=== PATIENT | male | born 1960 | race Caucasian/White ===

== ENCOUNTER 2022-10-20 10:48 | Observation (INO) | payer OTHER ==
[2022-10-20] MEDS ORDERED: NITROGLYCERIN SL TABS 0.4 MG TAB SUBLINGUAL STA (11:01)
--- NOTE | 2022-10-20 11:08 | ED ---
Chest Pain HPI - General Chief Complaint: Chest Pain Stated Complaint: chest pain Time Seen by Provider: 10/20/22 10:54 Source: patient, RN notes reviewed Mode of arrival: ambulatory Limitations: no limitations - History of Present Illness Initial Comments: This is a 61-year-old male who presents to the emergency department for chest pain. Patient states that this has been going on for about a week. It was initially occurring on an intermittent basis, however it seems to be increasing in frequency and intensity. Describes this as a dull aching pain in the center of his chest with radiation into the back. The pain in the back feels sharp and he states it is between the shoulder blades. He has minor associated shortness of breath and has now started coughing. Denies any history of similar symptoms in the past. He has no personal cardiac history, but states that he does have a family history of cardiac problems. Unsure if anyone had a heart attack before the age of 50. Denies any medical problems and is not taking any medication on a regular basis. He is a daily smoker. Denies any fevers, chills, sore throat, palpitations, abdominal pain, nausea, vomiting, diarrhea, back pain, or headaches. MD Complaint: chest pain Onset/Timin -: week(s) - Related Data Home Medications Medication Instructions Recorded Confirmed No Known Home Medications 10/20/22 10/20/22 Allergies Allergy/AdvReac Type Severity Reaction Status Date / Time No Known Allergies Allergy Verified 10/20/22 15:49 Review of Systems ROS Statement: Those systems with pertinent positive or pertinent negative responses have been documented in the HPI. ROS Other: All systems not noted in ROS Statement are negative. Past Medical History Past Medical History: No Reported History History of Any Multi-Drug Resistant Organisms: None Reported Past Surgical History: No Surgical Hx Reported Past Psychological History: No Psychological Hx Reported Smoking Status: Current every day smoker Past Alcohol Use History: None Reported Past Drug Use History: None Reported General Exam Limitations: no limitations General appearance: alert, in distress Head exam: Present: atraumatic, normocephalic, normal inspection Respiratory exam: Present: normal lung sounds bilaterally. Absent: respiratory distress, wheezes, rales, rhonchi, stridor, chest wall tenderness Cardiovascular Exam: Present: regular rate, normal rhythm, normal heart sounds. Absent: systolic murmur, diastolic murmur, rubs, gallop, clicks Neurological exam: Present: alert, oriented X3, CN II-XII intact Psychiatric exam: Present: normal affect, normal mood Skin exam: Present: warm, dry, intact, normal color. Absent: rash Course Vital Signs 10/20/22 10/20/22 10/20/22 10:50 12:00 13:00 Temperature 97.8 F Pulse Rate 73 54 L 59 L Respiratory 20 15 16 Rate Blood Pressure 146/73 105/73 124/80 O2 Sat by Pulse 99 100 100 Oximetry 10/20/22 10/20/22 10/20/22 14:00 16:00 17:00 Temperature Pulse Rate 61 58 L 60 Respiratory 18 Rate Blood Pressure 136/81 O2 Sat by Pulse 100 Oximetry Chest Pain MDM - MDM This is a 61-year-old male who presents to the emergency department for chest pain. Was pt. sent in by a medical professional or institution? @ -No Did you speak to anyone other than the patient for history? @ -No Did you review nursing and triage notes? @ -Yes, and I agree, it is accurate with regards to the patient's symptoms. Were old charts reviewed? @ -No Differential Diagnosis? @ -Differential Chest Pain: Stable Angina, Unstable Angina, STEMI, NSTEMI Aortic Dissection, Pneumothorax, Musculoskeletal, Esophageal Spasm GERD, Cholecystitis, Pancreatitis, Zoster, this is not meant to be an all-inclusive list. EKG interpreted by me (3pts min.)? @ -EKG interpreted by me demonstrating the following: Normal sinus rhythm. Ventricular rate 67 beats per minute, MN interval 140 ms, QRS duration 90 ms, QTC 433 ms. X-rays interpreted by me (1pt min.)? @ -Chest x-ray obtained, my interpretation identifies no localized consolidations or infiltrates. CT interpreted by me (1pt min.)? @ -Not obtained U/S interpreted by me (1pt. min.)? @ -Not obtained What testing was considered but not performed? (CT, X-rays, U/S, labs)? Why? @ -None What meds were considered but not given? Why? @ -None Did you discuss the management of the patient with other professionals? @ -Yes, Dr. De Souza, who accepts the patient for admission. Did you reconcile home meds? @ -No Was smoking cessation discussed for >3mins.? @ -I discussed smoking cessation for greater than 3 minutes. The risk of smoking were discussed with the patient including but not limited to risks of cancer, stroke, coronary artery disease and COPD. Also discussed with patient were multiple methods of quitting smoking. Lastly we discussed the financial cost of smoking. Was critical care preformed (if so, how long)? @ -No Were there social determinants of health that impacted care today? How? (Homelessness, low income, unemployed, alcoholism, drug addiction, transportation, low edu. Level, literacy, decrease access to med. care, [facility], rehab)? @ -No Was there de-escalation of care discussed even if they declined? (Discuss DNR or withdrawal of care, Hospice)? @ -No What co-morbidities impacted this encounter? (DM, HTN, Smoking, COPD, CAD, Canc er, CVA, Hep., AIDS, mental health diagnosis, sleep apnea, morbid obesity)? @ -None Was patient admitted / discharged? @ -Admitted. Lab work obtained and found to be nonactionable. First troponin negative. Chest x-ray obtained revealing no acute findings. Patient was given a dose of nitroglycerin. This did not affect his chest pain whatsoever and only gave him a headache. Toradol was subsequently administered. Heart score is 3-4. Patient admitted to medicine for further evaluation of chest pain with cardiology consult. Undiagnosed new problem with uncertain prognosis? @ -None Drug Therapy requiring intensive monitoring for toxicity (Heparin, Nitro, Insulin, Cardizem)? @ -None Were any procedures done? @ -None Diagnosis/symptom? @ -Chest pain Acute, or Chronic, or Acute on Chronic? @ -Acute Uncomplicated (without systemic symptoms) or Complicated (systemic symptoms)? @ -Complicated Side effects of treatment? @ -None Exacerbation, Progression, or Severe Exacerbation] @ -Not applicable Poses a threat to life or bodily function? @ -Yes This case was discussed in detail with the attending ED physician, Dr. Suarez. Presentation, findings, and treatment plan discussed in detail as well. Disposition Clinical Impression: Chest pain Disposition: ADMITTED IP TO THIS HOSP
[2022-10-20 11:16] LABS: Basophils % (A) 0 %; Eosinophils # (A) 0.3 k/uL (0-0.7); Eosinophils % (A) 3 %; HCT 43.7 % (39.0-53.0); HGB 14.2 gm/dL (13.0-17.5); Lymphocytes % (A) 23 %; MCHC 32.4 g/dL (31.0-37.0); MCV 89.6 fL (80.0-100.0); Mean Platelet Volume 7.4; Monocytes # (A) 0.5 k/uL (0-1.0); Monocytes % (A) 5 %; Neutrophils % (A) 67 %; Platelet Count 334 k/uL (150-450); RBC 4.88 m/uL (4.30-5.90); RDW 13.9 % (11.5-15.5)
[2022-10-20 11:31] LABS: INR 0.9 (<1.2); Partial Thromboplastin Time 24.2 sec (22.0-30.0); Prothrombin Time 9.6 sec (9.0-12.0)
--- NOTE | 2022-10-20 11:39 | XR ---
EXAMINATION TYPE: XR chest 2V DATE OF EXAM: 10/20/2022 COMPARISON: NONE HISTORY: Shortness of breath TECHNIQUE: Frontal and lateral views of the chest are obtained. FINDINGS: Scattered senescent parenchymal changes noted. Hyperinflation compatible with COPD. No evidence for infiltrate. No evidence for atelectasis. Heart size is stable. Mediastinal structures are stable and grossly unremarkable. No evidence for hilar prominence. Degenerative changes dorsal spine. IMPRESSION: 1. No evidence for acute pulmonary disease.
[2022-10-20 11:40] LABS: ALT 16 U/L (4-49); AST 18 U/L (17-59); African American GFR (CKD) >90 (>60 ml/min/1.73 sqM); Albumin 3.7 g/dL (3.5-5.0); Alkaline Phosphatase 62 U/L (38-126); Anion Gap 4 mmol/L; Blood Urea Nitrogen 18 mg/dL (9-20); Calcium 8.5 mg/dL (8.4-10.2); Carbon Dioxide 25 mmol/L (22-30); Chloride 109 mmol/L (98-107); Glucose 96 mg/dL (74-99); Non-African American GFR(CKD) >90 (>60 ml/min/1.73 sqM); Potassium 4.5 mmol/L (3.5-5.1); Sodium 138 mmol/L (137-145); Total Bilirubin 0.2 mg/dL (0.2-1.3); Total Protein 6.2 g/dL (6.3-8.2)
[2022-10-20] MEDS ORDERED: KETOROLAC 15 MG/ML 1 ML VIAL IVP STA (11:52)
[2022-10-20] MEDS ORDERED: NITROGLYCERIN SL TABS 0.4 MG TAB SUBLINGUAL PRN (12:50)
[2022-10-20] MEDS ORDERED: MORPHINE SULFATE 2 MG/ML SYRINGE IVP PRN ×2 (12:50→18:07)
[2022-10-20] MEDS ORDERED: NALOXONE 0.4 MG/ML 1 ML VIAL IV PRN (12:51)
[2022-10-20] MEDS ORDERED: ACETAMINOPHEN TAB 325 MG TAB PO PRN (12:51)
[2022-10-20] MEDS ORDERED: ONDANSETRON 4 MG/2 ML VIAL IVP PRN (12:51)
--- NOTE | 2022-10-20 17:23 | HP ---
HISTORY AND PHYSICAL PRESENTING COMPLAINT: Chest pain. HISTORY OF PRESENT ILLNESS: This is a 61-year-old gentleman with no significant past medical history, presented to the emergency department with complaints of chest pain that has been going on for the last 48 hours. The patient complained of left-sided chest discomfort which was intermittent. The pain was dull and aching in intensity, radiating to the shoulder blades. The patient denies any significant cardiac history. The patient does have significant history of smoking and family history of coronary artery disease. At the time of presentation in the ER, the patient had a chest x-ray obtained, which was negative for acute pulmonary process. EKG obtained in the ER showed normal sinus rhythm. No ST segment changes. Initial troponin obtained at the time of presentation was negative. The patient had a D-dimer ordered, pending at this time. The patient was tested negative for influenza and COVID, RSV as well. The patient will be placed on observation unit with consultation from Cardiology for evaluation for acute coronary syndrome. PAST MEDICAL HISTORY: No significant past medical history. PAST SURGICAL HISTORY: History of hip, ankle surgery. SOCIAL HISTORY: He smokes quarter pack per day for the last 30 years. Denies alcohol use. Does admit to history of marijuana use. FAMILY HISTORY: Significant for coronary artery disease in father and mother. Sister with history of diabetes mellitus. ALLERGIES: No known drug allergies. REVIEW OF SYSTEMS: A 12-point review of systems obtained, which was negative except for chest pain. PHYSICAL EXAMINATION: VITAL SIGNS: Temperature 97.8, pulse 61, respirations 16, blood pressure 124/80, saturation 100% on 2 L. GENERAL: The patient is alert and oriented x4. No apparent distress. HEENT: Normocephalic, atraumatic. CARDIOVASCULAR: Regular rate. No murmur. No lower extremity edema. LUNGS: Clear to auscultation bilaterally. No wheeze. No rhonchi. No rales. ABDOMEN: Soft and nontender. Bowel sounds present. NEUROLOGIC: Alert and oriented x3. No apparent distress. Appears at baseline. ASSESSMENT: Chest pain, rule out acute coronary syndrome. PLAN: Continue to monitor his troponin, D-dimer ordered, Cardiology consulted. The patient to be placed in observation unit, telemonitoring, SCDs for DVT prophylaxis. Total time spent on H and P is 25 minutes. MMODL / IJN: [id number] /
[2022-10-20] MEDS: NICOTINE 14MG/24HR PATCH TRANSDERM SCH (18:15)
[2022-10-21 06:51] LABS: African American GFR (CKD) >90 (>60 ml/min/1.73 sqM); Anion Gap 5 mmol/L; Blood Urea Nitrogen 20 mg/dL (9-20); Carbon Dioxide 24 mmol/L (22-30); Chloride 109 mmol/L (98-107); Glucose 100 mg/dL (74-99); Non-African American GFR(CKD) >90 (>60 ml/min/1.73 sqM); Potassium 4.2 mmol/L (3.5-5.1); Sodium 138 mmol/L (137-145)
[2022-10-21] MEDS: HYDROcodone/APAP 5-325MG 1 EACH TAB PO PRN ×2 (08:13→14:17)
[2022-10-21] MEDS: NICOTINE 14MG/24HR PATCH TRANSDERM SCH (08:14)
[2022-10-21 08:34] VITALS: BP 132/80; PULSE 65; RESP 18; TEMP 97.5
[2022-10-21] MEDS ORDERED: ASPIRIN 325 MG TAB PO SCH (09:00)
--- NOTE | 2022-10-21 09:36 | P.CRDCN ---
History of Present Illness History of present illness: HISTORY OF PRESENT ILLNESS: This is a 61-year-old male with a past medical history significant for nicotine dependence. 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 We have been asked to see the patient in consultation for chest pain. Patient examined at the bedside. Patient reports he has been having chest pain for the past week. He states the pain is constant and has not eased up. He reports the pain is sharp in nature. He states the pain is worse with coughing and deep inspiration. Patient reports significant pain upon palpation of left side of the chest. 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 * EKG reveals sinus mechanism with no signs of acute ischemia * Chest xray negative for acute process * Laboratory data: WBC 9.0. Hemoglobin 14.2. Platelet count 334. D-dimer 0 .26. Sodium 138. Potassium 4.2. BUN 20. Creatinine 0.67. Troponin negative 3. * Current home cardiac medications include none REVIEW OF SYSTEMS: At the time of my exam: CONSTITUTIONAL: Denies fever or chills. HEENT: Denies blurred vision, vision changes, or eye pain. Denies hemoptysis CARDIOVASCULAR: Denies chest pain. Denies orthopnea. Denies PND. Denies pa lpitations RESPIRATORY: Denies shortness of breath. GASTROINTESTINAL: Denies abdominal pain. Denies nausea or vomiting. HEMATOLOGIC: Denies bleeding disorders. GENITOURINARY: Denies any blood in urine. SKIN: Denies pruitis. Denies rash. PHYSICAL EXAM: VITAL SIGNS: Reviewed. GENERAL: Well-developed in no acute distress. HEENT: Head is normocephalic. Pupils are equal, round. Sclerae anicteric. Mucous membranes of the mouth are moist. Neck supple. No JVD or thyromegaly LUNGS: Respirations even and unlabored. Lungs essentially clear to auscultation bilaterally. HEART: Regular rate and rhythm. S1 and S2 heard. ABDOMEN: Soft. Nondistended. Nontender. EXTREMITIES: Normal range of motion. No clubbing or cyanosis. Peripheral pulses intact. No lower extremity edema NEUROLOGIC: Awake and alert. Oriented x 3. ASSESSMENT: Chest pain, troponins negative 3, noncardiac Nicotine dependence PLAN: An acute coronary event has been ruled out. Patient's pain is noncardiac in nature. Obtain 2-D echo to assess cardiac structure and function Smoking cessation recommended If 2-D echo does not reveal any significant abnormalities, patient may be discharged home today from a cardiac standpoint Nurse practitioner note has been reviewed by physician. Signing provider agrees with the documented findings, assessment, and plan of care. Past Medical History Past Medical History: No Reported History History of Any Multi-Drug Resistant Organisms: None Reported Past Surgical History: Orthopedic Surgery Past Psychological History: No Psychological Hx Reported Smoking Status: Current every day smoker Past Alcohol Use History: None Reported Past Drug Use History: None Reported Medications and Allergies Home Medications Medication Instructions Recorded Confirmed Type No Known Home Medications 10/20/22 10/20/22 History Allergies Allergy/AdvReac Type Severity Reaction Status Date / Time No Known Allergies Allergy Verified 10/20/22 15:49 Physical Exam Vitals: Vital Signs Temp Pulse Pulse Resp BP BP Pulse Ox 10/21/22 08:22 97 10/21/22 02:46 98.4 F 57 L 17 135/70 99 10/20/22 17:47 98.2 F 63 16 147/76 99 10/20/22 17:00 60 18 136/81 100 10/20/22 16:00 58 L 10/20/22 14:00 61 10/20/22 13:00 59 L 16 124/80 100 10/20/22 12:00 54 L 15 105/73 100 10/20/22 10:50 97.8 F 73 20 146/73 99 FiO2 10/21/22 08:22 21 10/21/22 02:46 10/20/22 17:47 10/20/22 17:00 10/20/22 16:00 10/20/22 14:00 10/20/22 13:00 10/20/22 12:00 10/20/22 10:50 Intake and Output 10/20/22 10/21/22 10/21/22 22:59 06:59 14:59 Intake Total 118 Balance 118 Intake: Oral 118 Other: # Voids 1 2 Weight 58.967 kg Results 10/20/22 11:06 10/21/22 04:36 Cardiac Enzymes 10/20/22 10/20/22 10/21/22 Range/Units 11:06 11:06 01:32 AST 18 (17-59) U/L Troponin I <0.012 <0.012 (0.000-0.034) ng/mL 10/21/22 Range/Units 04:36 AST (17-59) U/L Troponin I <0.012 (0.000-0.034) ng/mL Coagulation 10/20/22 Range/Units 11:06 PT 9.6 (9.0-12.0) sec APTT 24.2 (22.0-30.0) sec CBC 10/20/22 Range/Units 11:06 WBC 9.0 (3.8-10.6) k/uL RBC 4.88 (4.30-5.90) m/uL Hgb 14.2 (13.0-17.5) gm/dL Hct 43.7 (39.0-53.0) % Plt Count 334 (150-450) k/uL Comprehensive Metabolic Panel 10/20/22 10/21/22 Range/Units 11:06 04:36 Sodium 138 138 (137-145) mmol/L Potassium 4.5 4.2 (3.5-5.1) mmol/L Chloride 109 H 109 H (98-107) mmol/L Carbon Dioxide 25 24 (22-30) mmol/L BUN 18 20 (9-20) mg/dL Creatinine 0.70 0.67 (0.66-1.25) mg/dL Glucose 96 100 H (74-99) mg/dL Calcium 8.5 8.0 L (8.4-10.2) mg/dL AST 18 (17-59) U/L ALT 16 (4-49) U/L Alkaline Phosphatase 62 (38-126) U/L Total Protein 6.2 L (6.3-8.2) g/dL Albumin 3.7 (3.5-5.0) g/dL Current Medications Generic Name Dose Route Start Last Admin Trade Name Freq PRN Reason Stop Dose Admin Acetaminophen 650 mg 10/20/22 12:51 Acetaminophen Tab 325 Mg Tab PO Q6HR PRN Mild Pain or Fever > 100.5 Hydrocodone Bitart/Acetaminophen 1 each 10/20/22 12:51 10/21/22 08:13 Hydrocodone/Apap 5-325mg 1 Each Tab PO 1 each Q4HR PRN Administration Moderate Pain (Scale 4 to 6) Aspirin 325 mg 10/21/22 09:00 10/21/22 08:13 Aspirin 325 Mg Tab PO 325 mg DAILY HARDIK Administration Morphine Sulfate 2 mg 10/20/22 18:07 10/20/22 18:15 Morphine Sulfate 2 Mg/Ml Syringe IVP 2 mg Q4HR PRN Administration Chest Pain Naloxone HCl 0.2 mg 10/20/22 12:51 Naloxone 0.4 Mg/Ml 1 Ml Vial IV Q2M PRN Opioid Reversal Nicotine 1 patch 10/20/22 18:15 10/21/22 08:14 Nicotine 14mg/24hr Patch TRANSDERM 1 patch DAILY HARDIK Administration Nitroglycerin 0.4 mg 10/20/22 12:50 Nitroglycerin Sl Tabs 0.4 Mg Tab SUBLINGUAL Q5M PRN Chest Pain Ondansetron HCl 4 mg 10/20/22 12:51 Ondansetron 4 Mg/2 Ml Vial IVP Q8HR PRN Nausea And Vomiting Intake and Output 10/20/22 10/21/22 10/21/22 22:59 06:59 14:59 Intake Total 118 Balance 118 Intake: Oral 118 Other: # Voids 1 2 Weight 58.967 kg 10/20/22 11:06 10/21/22 04:36
[2022-10-21 11:17] LABS: Chol/HDL Ratio 4.05 Ratio
--- NOTE | 2022-10-21 12:48 | CA ---
Transthoracic Echo Report Name: Alonso White Age: 61 Gender: M : 1960 Exam Date: 10/21/2022 12:03 Exam Location: [facility] Ht (in): 64 Wt (lb): 130 Ordering Physician: Marzena Rapp Attending/Referring Phys: [id number], Dionte Lead Embedded Software Engineer Patricia Hughes RDCS Procedure CPT: Indications: LV function Cardiac Hx: Technical Quality: Good Contrast 1: Total Dose (mL): Contrast 2: Total Dose (mL): MEASUREMENTS (Male / Female) Normal Values 2D ECHO LV Diastolic Diameter PLAX 4.7 cm 4.2 - 5.9 / 3.9 - 5.3 cm LV Systolic Diameter PLAX 3.0 cm IVS Diastolic Thickness 1.2 cm 0.6 - 1.0 / 0.6 - 0.9 cm LVPW Diastolic Thickness 1.1 cm 0.6 - 1.0 / 0.6 - 0.9 cm LV Relative Wall Thickness 0.5 RV Internal Dim ED PLAX 3.1 cm LA Systolic Diameter LX 3.6 cm 3.0 - 4.0 / 2.7 - 3.8 cm LV Diastolic Volume MOD BP 83.6 cm??? 67 - 155 / 56 - 104 cm??? LV Systolic Volume MOD BP 45.2 cm??? 22 - 58 / 19 - 49 cm??? LV Ejection Fraction MOD BP 46.0 % >= 55 % LV Diastolic Volume MOD 4C 68.0 cm??? LV Systolic Volume MOD 4C 35.3 cm??? LV Ejection Fraction MOD 4C 48.1 % LV Diastolic Length 4C 6.2 cm LV Systolic Length 4C 6.2 cm LV Diastolic Volume MOD 2C 90.3 cm??? LV Systolic Volume MOD 2C 53.0 cm??? LV Ejection Fraction MOD 2C 41.3 % LV Diastolic Length 2C 7.1 cm LV Systolic Length 2C 6.9 cm LA Volume 51.9 cm??? 18 - 58 / 22 - 52 cm??? M-MODE Aortic Root Diameter MM 2.9 cm MV E Point Septal Separation 0.7 cm AV Cusp Separation MM 2.2 cm DOPPLER AV Peak Velocity 119.2 cm/s AV Peak Gradient 5.7 mmHg MV Area PHT 2.9 cm??? Mitral E Point Velocity 77.1 cm/s Mitral A Point Velocity 82.0 cm/s Mitral E to A Ratio 0.9 MV Deceleration Time 261.4 ms MV E' Velocity 7.8 cm/s Mitral E to MV E' Ratio 9.9 TR Peak Velocity 243.5 cm/s TR Peak Gradient 23.7 mmHg Right Ventricular Systolic Press 27.1 mmHg FINDINGS Left Ventricle Left ventricular ejection fraction is estimated at 50 %. Left ventricular cavity size normal. Normal left ventricular wall motion. Mildly increased septal wall thickness. Mildly decreased left ventricular ejection fraction. Right Ventricle Normal right ventricular size and function. Right ventricular systolic pressure within normal limits. Right Atrium Normal right atrial size. Left Atrium Normal left atrial size. Mitral Valve Structurally normal mitral valve. Mild to moderate mitral regurgitation. Aortic Valve Trileaflet aortic valve. No aortic valve stenosis or regurgitation. Tricuspid Valve Structurally normal tricuspid valve. Mild tricuspid regurgitation. Pulmonic Valve Structurally normal pulmonic valve. No pulmonic regurgitation. Pericardium No pericardial effusion. Aorta Normal size aortic root and proximal ascending aorta. CONCLUSIONS Normal LV systolic function [id number] mitral regurgitation Previewed by: Dr. Luis Su MD (Electronically Signed) Final Date: 21 October 2022 12:47
--- NOTE | 2022-10-21 14:06 | P.DS ---
Providers Date of admission: 10/20/22 12:37 Expected date of discharge: 10/21/22 Attending physician: Alin De Souza MD Primary care physician: Stated None Hospital Course: * 61-year-old male with a past medical history significant for nicotine dependence. 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 We have been asked to see the patient in consultation for chest pain. Patient examined at the bedside. Patient reports he has been having chest pain for the past week. He states the pain is constant and has not eased up. He reports the pain is sharp in nature. He states the pain is worse with coughing and deep inspiration. Patient reports significant pain upon palpation of left side of the chest. 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 * EKG reveals sinus mechanism with no signs of acute ischemia * Chest xray negative for acute process * Laboratory data: WBC 9.0. Hemoglobin 14.2. Platelet count 334. D-dimer 0.26. Sodium 138. Potassium 4.2. BUN 20. Creatinine 0.67. Troponin negative 3. * Patient was seen by cardiology and echocardiogram was obtained which showed normal left ventricular function * Patient was counseled to follow up with primary care provider post discharge * And given prescription for omeprazole PHYSICAL EXAMINATION: GENERAL: The patient is alert and oriented x3, not in any acute distress. Well developed, well nourished. HEENT: Pupils are round and equally reacting to light. EOMI. No scleral icterus. No conjunctival pallor. Normocephalic, atraumatic. No pharyngeal erythema. No thyromegaly. CARDIOVASCULAR: S1 and S2 present. No murmurs, rubs, or gallops. PULMONARY: Chest is clear to auscultation, no wheezing or crackles. ABDOMEN: Soft, nontender, nondistended, normoactive bowel sounds. No palpable organomegaly. MUSCULOSKELETAL: No joint swelling or deformity. EXTREMITIES: No cyanosis, clubbing, or pedal edema. NEUROLOGICAL: Gross neurological examination did not reveal any focal deficits. SKIN: No rashes. Assessment: ASSESSMENT: Chest pain, noncardiac musculoskeletal in origin Nicotine dependence PLAN: Serial troponins obtained, d-dimer obtained which was negative Echocardiogram did not show wall motion abnormality Patient started on omeprazole [place] regarding smoking cessation Chest x-ray negative regarding intrathoracic process Patient Condition at Discharge: Good Plan - Discharge Summary Discharge Rx Participant: No New Discharge Prescriptions: New Omeprazole 20 mg PO DAILY 30 Days #30 tab Discharge Medication List Omeprazole 20 mg PO DAILY 30 Days #30 tab 10/21/22 [Rx] Follow up Appointment(s)/Referral(s): None,Stated [Primary Care Provider] - 1-2 days Discharge Disposition: HOME SELF-CARE
[2022-10-22] MEDS ORDERED: ASPIRIN 81 MG PO SCH (09:00)
== END 2022-10-21 14:28 | disposition home or self-care (01) ==
LOC: EC 10:48 → 6NMEDSUR 12:37
PROVIDERS: ADMIT Internal Medicine; ATTEND Internal Medicine
DX: R07.89 Other chest pain (principal); F17.210 Nicotine dependence, cigarettes, uncomplicated; Z71.6 Tobacco abuse counseling; Z20.822 Contact with and (suspected) exposure to COVID-19; Z82.49 Family history of ischemic heart disease and other diseases of the circulatory system; Z83.3 Family history of diabetes mellitus; R06.02 Shortness of breath; R05.9 Cough, unspecified
CPT/HCPCS: 96375; 96374; 99285; 36415; 94760; 93005; 93306; 85379; 80061; 80053; 80048; 83735; 84484 ×2; 85025; 85610; 85730; 87636; 71046; G0378 ×2; S4990 ×2; J2270; J1885